=== PATIENT | female | born 1955 | race Caucasian/White ===

== ENCOUNTER 2017-05-16 13:17 | Emergency (ER) | payer BC ==
[2017-05-16 14:49] VITALS: BMI 31.8
--- NOTE | 2017-05-16 15:33 | C.PDOC ---
History Of Present Illness 61 yo female, dvt on xarelto, presents with cough ,sore throat, body aches. reports sick contacts. did not get flu shot. no abd pain sob n/v/d, urinary changes. Time Seen by Provider: 05/16/17 15:12 Chief Complaint (Nursing): Flu-like Symptoms Past Medical History Reviewed: Historical Data, Nursing Documentation, Vital Signs Vital Signs: Last Vital Signs Temp 99.4 F 05/16/17 14:49 Pulse 92 H 05/16/17 14:49 Resp 19 05/16/17 14:49 BP 158/90 H 05/16/17 14:49 Pulse Ox 100 05/16/17 15:33 - Medical History PMH: CHF, Deep Vein Thrombosis, HTN Denies: Chronic Kidney Disease Surgical History: Appendectomy Denies: Pacemaker Family History: States: Unknown Family Hx - Social History Hx Tobacco Use: No Hx Alcohol Use: No Hx Substance Use: No - Immunization History Hx Tetanus Toxoid Vaccination: No Hx Influenza Vaccination: No Hx Pneumococcal Vaccination: No Review Of Systems ENT: Positive for: Throat Pain Respiratory: Positive for: Cough Physical Exam - Physical Exam Appears: Well, No Acute Distress, Other (speaking full sentences, in nad, ) Skin: Normal Color, Warm, Dry Eye(s): bilateral: Normal Inspection, PERRL, EOMI Nose: Normal Throat: Normal Neck: Normal Cardiovascular: Rhythm Regular Respiratory: Normal Breath Sounds, No Rales, No Rhonchi, No Wheezing Gastrointestinal/Abdominal: Normal Exam Back: Normal Inspection Extremity: Normal ROM ED Course And Treatment O2 Sat by Pulse Oximetry: 100 Medical Decision Making Medical Decision Making: high clinical suspicion for influenza. cxr neg lungs clear speaking full sentences, will treat. Disposition - Disposition Referrals: [facility] [Outside] [facility], [facility] [Outside] Disposition: HOME/ ROUTINE Disposition Time: 16:14 Condition: STABLE Additional Instructions: please follow up with your doctor. return to er with worsening symptoms or concerns. Prescriptions: Oseltamivir Phosphate [Tamiflu] 75 mg PO BID #10 capsule Instructions: Viral Syndrome (ED) Forms: [employer] (Uzbek) - Clinical Impression Clinical Impression: Influenza-like illness
--- NOTE | 2017-05-16 15:46 | RAD ---
HISTORY: cough COMPARISON: 08/19/2014 TECHNIQUE: Chest PA and lateral FINDINGS: LUNGS: No active pulmonary disease. PLEURA: No significant pleural effusion identified. No pneumothorax apparent. CARDIOVASCULAR: Normal. OSSEOUS STRUCTURES: No significant abnormalities. VISUALIZED UPPER ABDOMEN: Normal. OTHER FINDINGS: None. IMPRESSION: No active disease.
[2017-05-16 17:04] VITALS: BP 133/75; PULSE 98; RESP 20; TEMP 98.8; O2SAT 97
== END 2017-05-16 17:01 | disposition home or self-care (01) ==
LOC: C.ER 13:17
DX: J11.1 Influenza due to unidentified influenza virus with other respiratory manifestations (principal); I10 Essential (primary) hypertension; I50.9 Heart failure, unspecified; Z86.718 Personal history of other venous thrombosis and embolism

== ENCOUNTER 2018-02-08 13:08 | Emergency (ER) | payer MEDICARE, BC ==
[2018-02-08 13:09] VITALS: BMI 31.8
[2018-02-08] MEDS ORDERED: Iohexol 240 (50 ml) PO STA (13:51)
--- NOTE | 2018-02-08 13:51 | C.PDOC ---
History Of Present Illness 62 y/o female,w/PMhx of diverticulitis, presents to the ER complaining of LLQ abdominal pain, diarrhea, and constipation. Patient states that she did not have bm for 2 days. She developed some LLQ abdominal discomfort. She had some formed stool and then liquid yellow diarrhea. She was evaluated by GI yesterday, she had bloodwork done and she was given a prescription for CT Scan- Abdomen & Pelvis. Patient reports that the abdominal pain has become more intense today, she feels bloated now. She Denies having nausea,vomiting,dysuria, hematuria, fever, and chills. Time Seen by Provider: 02/08/18 13:40 Chief Complaint (Nursing): Abdominal Pain History Per: Patient History/Exam Limitations: no limitations Onset/Duration Of Symptoms: Days Current Symptoms Are (Timing): Still Present Severity: Moderate Past Medical History Reviewed: Historical Data, Nursing Documentation, Vital Signs Vital Signs: Last Vital Signs Temp 98.5 F 02/08/18 13:17 Pulse 88 02/08/18 13:17 Resp 17 02/08/18 13:17 BP 146/85 02/08/18 13:17 Pulse Ox 99 02/08/18 13:17 - Medical History PMH: CHF, Deep Vein Thrombosis, HTN Denies: Chronic Kidney Disease Surgical History: Appendectomy Denies: Pacemaker Family History: States: No Known Family Hx - Social History Hx Tobacco Use: No Hx Alcohol Use: No Hx Substance Use: No - Immunization History Hx Tetanus Toxoid Vaccination: No Hx Influenza Vaccination: No Hx Pneumococcal Vaccination: No Review Of Systems Except As Marked, All Systems Reviewed And Found Negative. Constitutional: Negative for: Fever, Chills Gastrointestinal: Positive for: Abdominal Pain, Diarrhea, Constipation. Negative for: Nausea, Vomiting Genitourinary: Negative for: Dysuria, Hematuria Physical Exam - Physical Exam Appears: Non-toxic, No Acute Distress, Other (hydrated) Skin: Normal Color, Warm, Dry Head: Atraumatic, Normacephalic Eye(s): bilateral: Normal Inspection Nose: Normal Oral Mucosa: Moist Neck: Supple Chest: Symmetrical Cardiovascular: Rhythm Regular Respiratory: Normal Breath Sounds, No Rales, No Rhonchi, No Wheezing Gastrointestinal/Abdominal: Bowel Sounds (normal bowel sounds), Soft, Tenderness (LLQ tenderness), Distention (mild distention), No Guarding, No Rebound Neurological/Psych: Oriented x3, Normal Speech ED Course And Treatment - Laboratory Results Result Diagrams: 02/08/18 14:03 02/08/18 14:32 O2 Sat by Pulse Oximetry: 99 (RA) Pulse Ox Interpretation: Normal - CT Scan/US CT abd/pelvis Other Rad Studies (CT/US): Read By Radiologist, Radiology Report Reviewed CT/US Interpretation: Name:MADELEINE MARTINEZ Exam Date:Feb 08, 2018 5:12:23 PM EDT. Modality Type:CT. Description:CT - ABDOMEN AND PELVIS WITH CORONAL AND SAGITTAL MPRS. Gender:F Laterality:Not applicable. :51 Referring Physician:Judith Kessler MD. Hist ory: Left lower quadrant pain. History diverticulitis. Comparison: None. Technique: CT examination abdomen and pelvis with oral and intravenous contrast. CT examination of the abdomen and pelvis was obtained with oral and intravenous contrast. There is no consolidation or atelectasis or pleural effusion at the lung bases. There is a small pleural parenchymal density at the posterior lateral aspect right lung base and this measures approximately 1.5 cm. The liver, spleen and pancreas appear within normal limits. Gallbladder is mildly distended. There is no periaortic mass or lymphadenopathy. Kidneys show no mass or obstruction or calculus. IVC filter is noted. In the lower abdomen and pelvis there are multiple loops of small bowel with bowel wall thickening at the right lower quadrant of the abdomen and pelvis suggesting enteritis. There is mild diverticular changes sigmoid colon. There is no diverticular abscess or mass. Note is made of an endovascular stent within the left common iliac artery. A small amount of free fluid within the pelvis. Bladder appears within normal limits. Osseous structures are intact. Impression: Small pleural parenchymal density measuring approximately 1.5 cm posterior lateral aspect right lung. Liver, spleen, pancreas and gallbladder are within normal limits. Multiple loops of small bowel with bowel wall thickening of the right lower quadrant of the abdomen and pelvic region suggesting enteritis. Diverticular changes sigmoid colon. IVC filter. Clinical correlation advised. - Physician Consult Information Time Consulting Physician Contacted: 20:19 Physician Contacted: Jl Maria Outcome Of Conversation: Patient to be discharged with prescription for Cipro and he will follow up with her in the office if pain persists. Medical Decision Making Medical Decision Making: Plan: --Labs --UA --Morphine IV --CT- Abd & Pelv Patient informed of CT findings. 7:35pm Paged Dr. Nichols's service. Dr. Mercedes, covering, returned call. Disposition Counseled Patient/Family Regarding: Studies Performed, Diagnosis, Need For Followup, Rx Given - Disposition Referrals: Jl Maria MD [Staff Provider] - Gerardo Lozada MD [Staff Provider] - Disposition: HOME/ ROUTINE Disposition Time: 20:21 Condition: STABLE Prescriptions: Ciprofloxacin [Cipro] 1 tab PO BID #14 tab Instructions: Acute Abdomen (Belly Pain) Forms: [employer] ([place]) - Clinical Impression Clinical Impression: Enteritis - Scribe Statement The provider has reviewed the documentation as recorded by the Anamariaibe Keely Jacob Provider Attestation: All medical record entries made by the Scribe were at my direction and personally dictated by me. I have reviewed the chart and agree that the record accurately reflects my personal performance of the history, physical exam, medical decision making, and the department course for this patient. I have also personally directed, reviewed, and agree with the discharge instructions and disposition.
[2018-02-08] MEDS ORDERED: Iohexol 240 (50 ml) ONE (14:13)
[2018-02-08 14:16] LABS: BASO % 0.4 % (0.0-2.0); EOS # 0.1 K/uL (0.0-0.7); EOS % 1.6 % (0.0-4.0); HEMOGLOBIN 15.2 g/dL (11.0-16.0); LYMPH # 0.8 K/uL (1.0-4.3); LYMPH % 12.6 % (20.0-40.0); MEAN CELL VOLUME 96.8 fL (81.0-99.0); MEAN CORPUSCULAR HEMOGLOBIN 32.9 pg (27.0-31.0); MONO # 0.5 K/uL (0.0-0.8); MONO % 8.3 % (0.0-10.0); NEUT # 5.1 K/uL (1.8-7.0); NEUT % 77.1 % (50.0-75.0); RBC 4.61 Mil/uL (3.80-5.20); RED CELL DISTRIBUTION WIDTH 13.4 % (11.5-14.5); WHITE BLOOD COUNT 6.6 K/uL (4.8-10.8)
[2018-02-08 14:50] LABS: ALB/GLOB RATIO 1.3 (1.0-2.1); ALBUMIN 3.9 g/dL (3.5-5.0); ALT/SGPT 44 U/L (9-52); AST/SGOT 28 U/L (14-36); BLOOD UREA NITROGEN 15 mg/dL (7-17); CALCIUM 9.1 mg/dl (8.6-10.4); GFR NON-AFRICAN AMERICAN 56; LIPASE 82 U/L (23-300)
[2018-02-08 15:42] LABS: SQUAMOUS EPITHIAL 2 /hpf (0-5); URINE BACTERIA RARE (<OCC); URINE BILIRUBIN NEGATIVE (NEGATIVE); URINE BLOOD 1+ (NEGATIVE); URINE CLARITY Clear (Clear); URINE COLOR Yellow (YELLOW); URINE GLUCOSE (UA) NORMAL (Normal); URINE LEUKOCYTE ESTERASE NEG Leu/uL (Negative); URINE PROTEIN NEGATIVE (NEGATIVE); URINE UROBILINOGEN NORMAL mg/dL (0.2-1.0)
[2018-02-08] MEDS ORDERED: Iodixanol 320 MG/ML 100 ML BOTTLE IV ONE (16:14)
[2018-02-08 19:20] VITALS: PULSE 88
[2018-02-08 20:50] VITALS: BP 119/72; RESP 14; TEMP 97.9; O2SAT 98
--- NOTE | 2018-02-09 11:01 | CT ---
Date of service: 02/08/2018 PROCEDURE: CT Abdomen and Pelvis with contrast HISTORY: abd pain COMPARISON: 11/29/2017 TECHNIQUE: Contrast dose: Is 100 mL Visipaque 320 Radiation dose: Total exam DLP = 1039.06 mGy-cm. This CT exam was performed using one or more of the following dose reduction techniques: Automated exposure control, adjustment of the mA and/or kV according to patient size, and/or use of iterative reconstruction technique. FINDINGS: LOWER THORAX: Minimal atelectasis and focal pleural thickening adjacent in the right lower lobe. No edi infiltrate or pleural effusion. LIVER: Unremarkable. No gross lesion or ductal dilatation. GALLBLADDER AND BILE DUCTS: Unremarkable. PANCREAS: Unremarkable. No gross lesion or ductal dilatation. SPLEEN: Unremarkable. ADRENALS: Unremarkable. No mass. KIDNEYS AND URETERS: Unremarkable. No hydronephrosis. No solid mass. VASCULATURE: No evidence of aortic aneurysm. There is a left iliac venous stent noted. There is an inferior vena caval filter noted. No aortic atherosclerotic calcification or mural plaque present. BOWEL: Marked circumferential mural thickening of the distal and terminal ileum. No bowel obstruction. There is diverticulosis of the sigmoid colon with focal mural thickening of the affected portion of the sigmoid colon consistent with chronic muscularis hypertrophy. No other abnormal bowel loops are appreciated. APPENDIX: Not identified. No secondary findings. PERITONEUM: Unremarkable. No free fluid. No free air. LYMPH NODES: Unremarkable. No enlarged lymph nodes. BLADDER: Unremarkable. REPRODUCTIVE: Unremarkable uterus BONES: No acute fracture. OTHER FINDINGS: None. IMPRESSION: Mural thickening of the distal and terminal ileum common nonspecific. Consider inflammatory bowel disease or infectious etiology. Minor findings as above. The preliminary findings for this examination were reported by [facility] at 7:18 p.m. on 02/08/2018. There is concurrence of this report with the preliminary findings.
== END 2018-02-08 20:50 | disposition home or self-care (01) ==
LOC: C.ER 13:08
DX: K52.9 Noninfective gastroenteritis and colitis, unspecified (principal)
CPT/HCPCS: 74177; 80053; 81001; 83690; 85025; 96374; 99285; J2270; Q9966; Q9967

== ENCOUNTER 2018-06-28 09:20 | Outpatient (CLI) | payer BC | END 2018-06-28 09:21 | disposition home or self-care (01) | LOC: C.RADIC 09:20 ==